=== PATIENT | female | born 1980 | race Caucasian/White ===

== ENCOUNTER 2016-06-24 22:40 | Emergency (ER) | payer SELFPAY ==
[~2016-06-24] VITALS: Ht 172.7 cm; Wt 90.7 kg
[2016-06-24 22:40] VITALS: BP 162/87; PULSE 89; RESP 20; TEMP 98.1; O2SAT 98
--- NOTE | 2016-06-24 22:40 | NUR ---
Patient to ER bed 4 to gown for evaluation. Side rails up. Report given to RENA BOBBY.
--- NOTE | 2016-06-24 23:45 | NUR ---
Pt brought in by friend in stable condition. Pt c/o sudden onset of chest pain and SOB that began around 1999. Pt stated that chest pain feels like a stabbing feeling. Pt stated that approx after 30 minutes after eating dinner her cheeks became hot and her body felt numb and tingling. Pt denies taking any pain meds. Pt denies any medical hx. -N/V/D. -sob noted at this time. Placed pt on bus driver/monitor. No acute distress noted at this time, will continue to monitor.
--- NOTE | 2016-06-24 23:48 | NUR ---
ER at bedside examining patient.
[2016-06-25] MEDS ORDERED: PANTOPRAZOLE SODIUM 40 MG/VIAL (PROTONIX) IVP ONE
[2016-06-25] MEDS ORDERED: MAG-AL HYDROX/SIMETH 30 ML UDC PO ONE
[2016-06-25 00:31] LABS: BASOPHILS # (AUTO) 0.2 K/uL (0.0-0.2); BASOPHILS % (AUTO) 1.5 % (0.0-2.0); EOSINOPHILS # (AUTO) 0.2 K/uL (0.0-0.4); EOSINOPHILS % (AUTO) 1.6 % (0.0-4.0); HEMOGLOBIN 13.6 g/dL (12.0-16.0); LYMPHOCYTES # (AUTO) 3.5 K/uL (1.0-5.5); LYMPHOCYTES % (AUTO) 28.5 % (20.5-51.5); MEAN CORPUSCULAR HEMOGLOBIN 29 pg (27-31); MEAN CORPUSCULAR HGB CONC 34 % (32-36); MEAN CORPUSCULAR VOLUME 84 fL (79.0-98.0); MONOCYTES # (AUTO) 0.9 K/uL (0.0-1.0); MONOCYTES % (AUTO) 7.7 % (1.7-9.3); NEUTROPHILS # (AUTO) 7.5 K/uL (1.8-7.7); NEUTROPHILS % (AUTO) 60.7 % (40.0-70.0); PLATELET COUNT (AUTO) 351 K/uL (130-430); RED BLOOD CELL COUNT(AUTO) 4.74 MIL/uL (4.2-6.2); RED CELL DISTRIBUTION WIDTH 11.8 % (9.0-15.0); WHITE BLOOD COUNT (AUTO) 12.3 K/uL (4.8-10.8)
[2016-06-25 00:54] LABS: CALCIUM 8.8 mg/dL (8.4-11.0); POTASSIUM 3.7 mmol/L (3.5-5.1)
[2016-06-25 00:55] LABS: CREATININE 0.76 mg/dL (0.55-1.30)
[2016-06-25 01:00] LABS: ALBUMIN 3.7 g/dL (3.4-4.8); TOTAL BILIRUBIN 0.4 mg/dL (0.0-1.0); TOTAL PROTEIN, SERUM 7.5 g/dL (6.4-8.3)
[2016-06-25 01:39] VITALS: BP 140/81; PULSE 71; RESP 12; TEMP 97.9; O2SAT 99
--- NOTE | 2016-06-25 01:39 | NUR ---
Patient given written and verbal discharge instructions and verbalizes understanding. ER MD Espitia discussed with patient the results and treatment provided. Patient in stable condition. ID arm band removed. Patient educated on pain management and to follow up with PMD. Pain Scale 2/10. Opportunity for questions provided and answered.
== END 2016-06-25 01:39 | disposition home or self-care (01) ==
LOC: SED 22:40
DX: R07.9 Chest pain, unspecified (principal); R42 Dizziness and giddiness; R20.0 Anesthesia of skin; R06.89 Other abnormalities of breathing; Z90.49 Acquired absence of other specified parts of digestive tract
CPT/HCPCS: 36415; 71010; 80053; 81025; 83880; 84484; 85025; 93005; 96374; 99285; C9113